=== PATIENT | female | born 1975 | race Caucasian/White ===

== ENCOUNTER 2025-04-26 11:24 | Emergency (ER) | payer OTHER, SELFPAY ==
--- OUTSIDE RECORDS SUMMARY | 2025-04-26 11:26 | XMS_ITS | Clinical Summary ---
Author Organization [employer] [facility] Address [address] [place] [id number] Care Team Providers Care Cylinder Steamer Name Role Phone Kathi Rios APRN, LUC Unavailable [phone] Kathi Rios APRN, LUC Primary Care Provider + Allergies Active Allergy Reactions Criticality Noted Date Comments Buspirone Hcl Myalgia 08/09/2014 Morphine Anaphylaxis,Cardiac Arrest High 04/12/2007 Per patient on 11/28/2020, she was told that she stopped breathing and had a rash (received for a surgery). Since then, patient says she has tolerated Percocet (oxycodone), Vicodin (hydrocodone), Dilaudid (hydromorphone) Morphine Anaphylaxis High 01/02/2023 Unlisted Allergen (Include Detail In Comments) Rash,Itching 05/24/2018 Allergy to suture material from gallbladder surgery Sutures Hives Medium 09/18/2023 Pt does not know which kind - whatever was used last time during my neck surgery Venlafaxine Other - Describe In Comment Field 06/28/2021 Increased depression Medications albuterol HFA 90 mcg/actuation inhaler Inhale 1-2 Puffs by mouth every 4 hours if needed. Active aspirin (ECOTRIN) 81 mg enteric coated tablet Take 81 mg by mouth once daily with a meal. Active MULTIVITAMIN ORAL Take 1 Tablet by mouth once daily in the evening. Active acyclovir (ZOVIRAX) 800 mg tablet Take 800 mg by mouth 3 times daily if needed (cold sores). Active cetirizine (ZYRTEC) 10 mg tablet Take 10 mg by mouth once daily in the evening. Active estradioL (ESTRACE) 0.5 mg tablet Take 0.5 mg by mouth once daily in the evening. 12/19/19 23 Active gabapentin (NEURONTIN) 300 mg capsule Take 600 mg by mouth at bedtime. 11/07/19 23 Active citalopram (CeleXA) 40 mg tablet Take 40 mg by mouth once daily in the evening. Active omeprazole (PRILOSEC) 20 mg Delayed-Release capsule Take 40 mg by mouth once daily before a meal. Active candesartan (ATACAND) 4 mg tablet Take 4 mg by mouth once daily in the evening. Active acetaminophen (TYLENOL EXTRA STRGTH) 500 mg tabletIndications: Herniation of intervertebral disc between L5 and S1 Take 2 Tablets (1,000 mg) by mouth every 6 hours. Max acetaminophen dose: 4000mg in 24 hrs. 36 Tablet 3 10:10 AM GARNETT ROOM WORKER 09/19/20 23 Active methocarbamoL (ROBAXIN) 750 mg tabletIndications: Herniation of intervertebral disc between L5 and S1 Take 1 Tablet (750 mg) by mouth four times daily. 24 Tablet 3 10:10 AM G[employer] RO[employer] WORKER 09/19/20 23 Active oxyCODONE (ROXICODONE) 5 mg immediate release tabletIndications: Herniation of intervertebral disc between L5 and S1 Take 1-2 Tablets (5-10 mg) by mouth every 4 hours if needed for Pain (For moderate to severe pain.). 26 Tablet 3 10:10 AM G[employer]NETT ROOM WORKER 09/19/20 23 Active sennosides-docusat e (SENOKOT S) (8.6-50 mg) tabletIndications: Herniation of intervertebral disc between L5 and S1 Take 1-4 Tablets by mouth two times daily. 30 Tablet 3 10:10 AM GARNETT ROOM WORKER 09/19/20 23 Active methylPREDNISolone (MEDROL DOSEPAK) 4 mg tabletIndications: Contact dermatitis, unspecified contact dermatitis type, unspecified trigger Take by mouth as instructed per packaging. 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): related to cold sores Anxiety Factor 5 Leiden mutation, heterozygous Resolved Problems Problem Noted Date Diagnosed Date Resolved Date Factor V Leiden mutation 06/25/201804/2018 Encounters Date Type Department Care Team Description 04/26/2025 Nurse Triage [facility] [address] [address] [place] [address] Pcp, No Leg Pain/problem from Last 3 Months Immunizations Immunization Administration Dates Next Due Influenza, IIV4 07/02/2018,07/15/2017,07/09/2016 ,07/31/2015,10/15/2014 MMR 06/21/1991 Td (Age >=7 Years) 10/11/2000 Tdap 05/20/2010 Family History Medical History Relation Name Comments Factor V Leiden deficiency Father Neuropathy Father Stroke Father multiple Diabetes Maternal Aunt Cancer-prostate Maternal Grandfather Diabetes Maternal Grandmother Diabetes Mother Heart Disease Mother heart valve re placement Stroke Mother age 36 and 53 Anesthesia Problem No Family History Blood Disease No Family History Cancer-breast No Family History Cancer-colon No Family History Cancer-ovarian No Family History Relation Name Status Comments Daughter Alive Father Maternal Aunt Maternal Grandfather Maternal Grandmother Mother Alive Son Alive Social History Tobacco Use Types Packs/Day Years Used Date Smoking Tobacco: Never Smokeless Tobacco: Never Tobacco Cessation:Counseling Given: No Alcohol Use Standard Drinks/Week Comments Yes 0 (1 standard drink = 0.6 oz pur e alcohol) RARE PHQ-2 Answer Date Recorded PHQ-2 Score 2 12/18/2018 Social Connections Answer Date Recorded Frequency of Communication with Friends and Fami ly Not on file 09/18/2023 Comments No Sex and Gender Information Value Date Recorded Sex Assigned at Not on file Legal Sex Female 5:23 AM G[employer]NET[employer] WORK[employer] Gender Identity Not on file Sexual Orientation Not on file Occupation Industry Job Start Date Job End Date [employer] Not on file Not on file Not on file Obstetrics History Para Term AB IAB SAB Ectopic Multiple Livin g Live Births 2 2 2 0 0 0 0 0 0 2 2 Date Outcome GA Total Labor Labor/2nd/3rd Weight Sex Type Anes PTL Tasia A1 A5 Name Clin 1995 Term M Vag Living 1997 Term F C-Sec tion Living Last Filed Vital Signs Vital Sign Reading Time Taken Comments Blood Pressure 109/74 10/22/2023 8:54 AM G[employer] RO[employer] WORKER Pulse 67 10/22/2023 8:54 AM [employer] RO[employer] WORKER Temperature 36.7 C (98.1 F) 10/22/2023 8:54 AM [employer] RO[employer] WORKER Respiratory Rate 16 10/22/2023 8:54 AM [employer] RO[employer] WORKER Oxygen Saturation 97% 10/22/2023 8:54 AM GAR[employer] RO[employer] WORKER Inhaled Oxygen Concentration - - Weight 68.9 kg (152 lb) 10/22/2023 8:54 AM [employer] RO[employer] WORKER Height 167.6 cm (5' 6) 10/22/2023 8:54 AM [employer] RO[employer] WORKER Body Mass Index 24.53 10/22/2023 8:54 AM GAR[employer] RO[employer] WORKER Plan of Treatment Health Maintenance Due Date Last Done Comments HIV for age 15-65 1990 Hepatitis C screening for ag e 18-79 1993 Hepatitis B series for 19+ ( 1 of 3 - 19+ 3-dose series) 1994 Depression screening for age 12+ 07/05/2019 07/05/2018, 07/02/2018, 07/15/2017, Additional history exists Colonoscopy through age 75 01/23/2020 Mammogram for age 45-75 01/23/2020 07/02/2018 Tetanus booster 05/20/2020 05/20/2010, 10/11/2000 Lipids for age 45-75 07/02/2023 07/02/2018, 06/13/2013, 02/16/2012, Additional history exists COVID-19 vaccine series ( season) 2024 09/05/2021, 01/06/2021 BMI (ht and wt on same day) for age 18+ 10/22/2024 10/22/2023, 12/20/2018, 07/02/2018, Additional history exists Pneumococcal series for age 50+ (1 of 1 - PCV) 2025 Zoster (shingles) series for age 50+ (1 of 2) 2025 Influenza Vaccine (#1) 2025 8, 07/15/2017, 07/09/2016, Additional history exists Medical Devices Implanted Type Area Patternmaker Plaster Device Identifier Shelf Expiration Date Model / Serial / Lot Spacer Cage Cerv [id number] Deg F3d Mimetic Metal - [id number] Implanted:Qty: 1 on 11/28/2020 by Rashad Barbosa MD at [facility] N/A: Spine [employer] 08/11/2022 [id number] / / [id number] Spacer Cage Cerv [id number] 7 Deg F3d Mimetic Metal - [id number] Implanted:Qty: 1 on 11/28/2020 by Rashad Barbosa MD at [facility] N/A: Spine [employer] 08/08/2024 [id number] / / [id number] Plate Cerv 4 Lvl 73mm Ascend Ant Titnm - [id number] Implanted:Qty: 1 on 11/28/2020 by Rashad Barbosa MD at [facility] N/A: Spine [employer] [id number] / / [id number] Screw Cerv 4.0x12 Slf Drilling Vari - [id number] Implanted:Qty: 2 on 11/28/2020 by Rashad Barbosa MD at [facility] N/A: Spine [employer] [id number] / / [id number] Screw Cerv 4.0x14 Slf Drilling Vari - [id number] Implanted:Qty: 4 on 11/28/2020 by Rashad Barbosa MD at [facility] N/A: Spine [employer] [id number] / / [id number] Screw Cerv Ant 4.5x14mm Ascend Slf Drill Fa - [id number] Implanted:Qty: 2 on 11/28/2020 by Rashad Barbosa MD at [facility] N/A: Spine [employer] [id number] / / [id number] Spacer Cage Lmbr [id number] Synmesh - [id number] Implanted:Qty: 1 on 11/28/2020 by Rashad Barbosa MD at [facility] N/A: Spine [employer] [id number] / / Endcap Lmbr 12diamm 0 Deg Synmesh - [id number] Implanted:Qty: 1 on 11/28/2020 by Rashad Barbosa MD at [facility] N/A: Spine [employer] 495.385 / / Endcap Lmbr 12diamm 2.5d [facility] - [id number] Implanted:Qty: 1 on 11/28/2020 by Rashad Barbosa MD at [facility] N/A: Spine J And J Depuy Spine [id number] / / Procedures Procedure Name Priority Date/Time Associated Diagnosis Comments XR MAMMO LOKI BILAT SCREEN Routine 07/02/2018 2:38 PM CDT Visit for screening mammogram LIPID PANEL W REFLEX MEASURED LDL Routine 07/02/2018 12:24 PM CDT Routine physical examination from Last 3 Months or Most Recently Relevant to Health Maintenance Results * XR MAMMO LOKI BILAT SCREEN (07/02/2018 2:38 PM CDT) Anatomical Region Laterality Modality BREASTS, Breast Left, Breast Right Bilateral Mammography Impressions 07/02/2018 4:09 PM CDT There is no radiographic evidence for malignancy. Recommend annual mammograms. A lay language report of this examination will be provided to the patient. MAMMOGRAM ASSESSMENT: ACR 1 Negative Narrative 07/02/2018 4:09 PM CDT XR MAMMO LOKI BILAT SCREEN [[id number]] CLINICAL HISTORY: This is an asymptomatic 43 y.o. patient. INDICATION FOR EXAM: Mammogram Screening. TECHNIQUE: CC & MLO views were obtained. This digital study was evaluated with the assistance of Computer-Aided Detection. Breast Tomosynthesis was used in interpretation. COMPARISON FILM: Yes 07/28/11 [facility] FINDINGS: Mammographically, the breast tissue is heterogeneously dense, which could obscure detection of small masses. There are no dominant masses, suspicious micro calcifications or areas of architectural distortion. us Kendra MIRANDA MAMMO Final Result * (ABNORMAL) LIPID PANEL W REFLEX MEASURED LDL (07/02/2018 12:24 PM CDT) CHOLESTEROL,TOTAL 237(H) 100 - 199 mg/dL 07/02/2018 8:31 PM CDT [facility] TRIGLYCERIDES 161(H) <150 mg/dL 07/02/2018 8:31 PM CDT [facility] HDL CHOLESTEROL 80 >40 mg/dL 8 8:31 PM CDT [facility] NON-HDL CHOLESTEROL 157(H) <145 mg/dl 07/02/2018 8:31 PM CDT [facility] CHOL/HDL RATIO 2.96 <4.50 07/02/2018 8:31 PM CDT [facility] LDL CHOLESTEROL 125 <=130 mg/dL 07/02/2018 8:31 PM CDT [facility] PROVIDER ORDERED STATUS RANDOM 07/02/2018 8:31 PM CDT [facility] Blood BLOOD SPECIMEN / Unknown Butterfly / Unknown 07/02/2018 12:24 PM CDT 07/02/2018 12:24 PM CDT Kendra MIRANDA CHEMISTRY Final Result [facility] [address] [place] [address], from Last 3 Months or Most Recently Relevant to Health Maintenance Insurance [facility] ADVANTAGE PLAN [facility] ADVANTAGE PLAN [facility] [place] ADVANTAGE * Guarantor: [facility] Contract, [facility] 2012 Account Type Relation to Patient Date of Phone Billing Address Contract Other [id number] [place] [id number] Advance Directives * Full Code (Latest Code Status on File) Date Activated Date Inactivated Comments 09/19/2023 12:28 AM 09/19/2023 2:50 PM Question Answer Comments Code Status Discussion: Reviewed Preferences * Full Code Date Activated Date Inactivated Comments 11/28/2020 2:17 PM 11/30/2020 12:24 PM Question Answer Comments Code Status Discussion: Per Existing Order * Full Code Date Activated Date Inactivated Comments 05/13/2018 10:57 AM 05/13/2018 8:55 PM Question Answer Comments Code Status Discussion: Not Discussed * Full Code Date Activated Date Inactivated Comments 08/27/2016 3:08 PM 08/28/2016 3:54 PM Care Teams Cylinder Steamer Relationship Specialty Start Date End Date Kathi Rios APRN, CNP PCP - General Nurse Practitioner 07/23/23 Kathi Rios APRN, CNP 01/02/23
[2025-04-26 11:40] VITALS: BP 118/81; PULSE 71; RESP 16; TEMP 36.2; O2SAT 96; BMI 26.1
--- NOTE | 2025-04-26 12:13 | CRLHL7_ITS ---
For Patients: As a result of the Century Cures Act, medical imaging exams and procedure reports are released immediately into your electronic medical record. You may view this report before your referring provider. If you have questions, please contact your health care provider. INDICATION: Right calf and knee pain TECHNIQUE: Ultrasound venous duplex lower right extremity. Compression venous exam was performed using minor-scale, color Doppler, and spectral Doppler imaging. COMPARISON: None. FINDINGS: Sonographic imaging demonstrates the right common femoral, deep femoral, superficial femoral, popliteal, posterior tibial and greater saphenous and the contralateral left common femoral veins to be fully compressible with normal color Doppler blood flow. IMPRESSION: Normal right lower extremity venous ultrasound, no sign of deep venous thrombosis. Dictated by Nikita Jimenez MD @ 04/26/2025 12:51:30 PM (Electronically Signed)
--- NOTE | 2025-04-26 12:15 | ED_ITS ---
HPI - General Adult General Chief complaint: Extremity Pain/Injury, Lower Stated complaint: R leg pain Time Seen by Provider: 04/26/25 11:27 History of Present Illness HPI narrative: Patient is a pleasant 50 year white female that about a week ago drove out to [place], and then flew back few days ago. She reports she has had some right knee and down to her foot numbness and discomfort. Feels little bit ?tight? in her calf area. She has not noticed any swelling, redness, or inability to walk. She has had no fevers or chills, no chest pain shortness of breath. No history of bleeding or clotting problems. She presents to ED for evaluation. She has nose no locking or catching of her knee. She has had no back symptoms although she does report she has had low back surgery and cervical surgery. She is on Neurontin and citalopram, she also takes a aspirin 81 mg daily. for postoperative symptoms after her surgeries. She has noticed no weakness in her right leg. Related Data Home Medications ?Medication ?Instructions ?Recorded ?Confirmed aspirin 81 mg capsule 81 mg PO DAILY 04/26/2507/13 citalopram 40 mg tablet 40 mg PO DAILY 04/26/2507/13 gabapentin 300 mg capsule 300 mg PO DAILY 04/26/2507/13 Previous Rx's ?Medication ?Instructions ?Recorded methylprednisolone 4 mg tablets in See Rx Instructions PO .COMPLEX 04/26/25 a dose pack (Medrol (Sudeep)) #21 ea Allergies Allergy/AdvReac Type Severity Reaction Status Date / Time morphine Allergy Unknown Verified 04/26/25 11:37 Review of Systems Status of ROS: Reports: 6 or more systems reviewed and unremarkable except as noted in History and below [employer] [facility] Social History Smoking Status: Never smoker How often do you have a drink containing alcohol: monthly or less AUDIT-C Alcohol total score: 1 Non-prescribed substance use: denies use Exam Narrative: Exam Narrative: Objective: Vital signs are within normal limits O2 sat 96% on room air Patient is alert orient x3 no distress Right knee shows full range of motion no effusion no warmth erythema Negative anterior posterior drawer No swelling notice of her knee calf or foot. She has some tightness with a Hohmann sign of her calf. No swelling of her leg noted. Const: Vital Signs, click to edit/add: Vital Signs - 24 hr 04/26/25 11:40 Temperature 97.2 F L Pulse Rate [Pulse Oximeter] 71 Respiratory Rate 16 Blood Pressure [Ri ght Upper Arm] 118/81 Pulse Oximetry 96 Oxygen Delivery Me thod Room Air Course Vital Signs Vital signs: Initial Vital Signs Temperature 97.2 F L 04/26/25 11:40 Temperature Source Temporal Artery Scan 04/26/25 11:40 Pulse Rate 71 04/26/25 11:40 Pulse Rhythm Regular 04/26/25 11:40 Respiratory Rate 16 04/26/25 11:40 Blood Pressure 118/81 04/26/25 11:40 Blood Pressure Mean 93 04/26/25 11:40 Blood Pressure Position Sitting 04/26/25 11:40 Pulse Oximetry 96 04/26/25 11:40 Oxygen Delivery Method Room Air 04/26/25 11:40 Vital Signs Temperature 97.2 F L 04/26/25 11:40 Pulse Rate 71 04/26/25 11:40 Respiratory Rate 16 04/26/25 11:40 Blood Pressure 118/81 04/26/25 11:40 Pulse Oximetry 96 04/26/25 11:40 Oxygen Delivery Method Room Air 04/26/25 11:40 Temperature 97.2 F L 04/26/25 11:40 Pulse Rate 71 04/26/25 11:40 Respiratory Rate 16 04/26/25 11:40 Blood Pressure 118/81 04/26/25 11:40 Pulse Oximetry 96 04/26/25 11:40 Oxygen Delivery Method Room Air 04/26/25 11:40 Medical Decision Making MDM Narrative Medical decision making narrative: [age] year white female with a history of recent travel with some right knee and leg pain. Likely musculoskeletal but I think we need to rule out DVT. Will get an ultrasound. If this is negative certainly perhaps some Medrol Dosepak might be helpful as well as ice to the calf area. Will see how the ultrasound shows. It is not clear radicular pain. Addendum 12:40 p.m.: The patient has a negative Doppler scan for DVT. I think she might either have a mild radicular pain, but more likely just simply soft tissue inflammation in her leg from her travel. She will continue her baby aspirin daily, would use a Medrol Dosepak that all prescribed. Maintain activity and walking. Follow up with primary care in the next 3-4 days not completely resolved for further assessment. Return to ED as needed. Discharge Plan Discharge Clinical Impression: Leg pain, right Patient Disposition: Home w/ Parent or Adult Condition: Stable Additional Instructions: Regular walking, continue her aspirin other home medicines, Medrol Dosepak prescribed. Follow-up with primary care doctor in 3-4 days if not completely resolved. Return to the ED sooner as needed. Activity Level: No Restrictions Discharge Diet: Regular Prescriptions: New methylprednisolone [Medrol (Sudeep)] 4 mg tablets,dose pack See Rx Instructions .ROUTE .COMPLEX Qty: 21 0RF Rx Instructions: orally per package directions No Action citalopram 40 mg tablet 40 mg PO DAILY gabapentin 300 mg capsule 300 mg PO DAILY aspirin 81 mg capsule 81 mg PO DAILY Stand Alone Forms: [employer] Info Instructions
--- OUTSIDE RECORDS SUMMARY | 2025-04-26 12:45 | XMS_ITS | Clinical Summary ---
Author Organization [facility] now [employer] Address [address] [place] [address] Care Team Providers Care Radiology Manager Name Role Phone Magdalenealbina Judi Acosta Primary Care Provider [phone] Source Comments You are receiving this document as you are listed as the primary care provider,follow-up provider, or the patient has been referred to you for consultation.This is in compliance with the Medicare andMedicaid EHR Incentive Program,which states Providers who transition their patient to another setting of careor provider of care or refers their patient to another provider of care shouldprovide summary care record for each transition of care or referral. [employer] Allergies Active Allergy Reactions Criticality Noted Date Comments Buspirone Myalgias 08/09/2014 Other reaction(s): Myalgia Morphine Anaphylaxis High 06/01/2019 Morphine Cardiovascular arrest,Anaphylaxis,Hives,R tank High 04/01/2005 Other reaction(s): Cardiac Arrest Per patient on 11/28/2020, she was told that she stopped breathing and had a rash (received for a surgery). Since then, patient says she has tolerated Percocet (oxycodone), Vicodin (hydrocodone), Dilaudid (hydromorphone) Other Hives High 09/18/2023 Sutures x3 whatever was used last time during my neck surgery Venlafaxine Other, see comments 06/28/2021 Increased depression Medications * This document contains information received from the source organization and may not represent a complete record from that organization. Multiple Vitamin (MULTIVITAMINS OR) daily. Active aspirin EC 81 MG enteric coated tablet Take 1 Tablet (81 mg) by mouth daily. 3 11/16/2020 Active acyclovir (ZOVIRAX) 800 MG tablet Take 1 Tablet (800 mg) by mouth as needed. 90 Tablet 3 08/10/2023 Active ALBUterol sulfate HFA 108 (90 Base) MCG/ACT inhaler Inhale 1-2 Puffs every 4 hours as needed for Wheezing. 1 Each 5 04/26/2024 Active citalopram (CELEXA) 40 MG tabletIndicatio ns:Anxiety (HRC) Take 1 Tablet (40 mg) by mouth daily. 90 Tablet 3 06/08/2024 06/08/20 Active gabapentin (NEURONTIN) 300 MG capsuleIndicati ons:Headache Take 1 Capsule (300 mg) by mouth daily at bedtime. Indications: Headache 90 Capsule 3 08/10/2024 Active candesartan (ATACAND) 4 MG tablet Take 1 Tablet (4 mg) by mouth daily. 90 Tablet 2 09/27/2024 09/27/20 25 Active Active Problems Problem Noted Date Diagnosed Date History of total hysterectom y with bilateral salpingo-oophorectomy (BSO) 02/25/2024 HNP (herniated nucleus pulposus), lumbar 023 Asthma, exercise induced 10/16/2020 Cervical spine pain 06/21/2020 Premature surgical menopause 03/27/2020 Overview (03/27/2020): Hysterectomy and BSO at age 25 for endometriosis. Recurrent cold sores 11/07/2019 Anxiety 11/07/2019 Hot flashes 06/01/2019 Factor 5 Leiden mutation, heterozygous 9 Family history of stroke 06/01/2019 Migraine without aura, intra ctable, without status migrainosus Resolved Problems Problem Noted Date Diagnosed Date Resolved Date Status post hysterectomy 02/25/202406/2024 Attention or concentration deficit 03/26/2023 02/22/2024 Chronic cluster headache, not intractable 06/21/2020 02/22/2024 Paresthesias 12/28/2019 02/22/2024 Chronic intractable headache 12/28/2019 02/22/2024 Syncope 12/08/2019 02/22/2024 Decreased libido 06/01/2019 02/22/2024 Blood in stool 06/01/2019 11/07/2019 Diarrhea 06/01/2019 11/07/2019 Migraine 06/01/2019 11/07/2019 Status post total hysterecto my and bilateral salpingo-oophorectomy 06/01/2019 11/07/2019 History of endometriosis 06/01/2019 Immunizations Immunization Administration Dates Next Due HepB Adult (Heplisav-B, 19+ yrs, 2 dose series) 08/04/2022 Influenza (Flucelvax), Prese rv Free QIV 08/10/2023 Influenza IIV4 (Quadrivalent ) 0.5mL ([id number]) 08/04/2022,06/28/2021,08/17/2019,2017,07/15/2017,07/09/2016,07/31/2015,1 12/16/2013 Influenza LAIV (Nasal, 2-49 yrs) 11/16/2020 Influenza ccIIV3 6 months+ (Flucelvax) 08/10/2024 Lionel COVID-19 Vaccine 09/05/2021,01/06/2021 MMR 06/21/1991 PCV20 ([id number]) 08/04/2022 PPSV23 (Pneumovax) 06/28/2021 Td 10/11/2000 Tdap 11/16/2020,05/20/2010 Family History Medical History Relation Name Comments Factor 5 Leiden Father Mother Heart Disease Father Mother Stroke Father Mother 3 strokes total Heart Disease Mother Father valve replacem ent Stroke Mother Father massive stroke age 50, and again age 64 Migraines Daughter Cancer, Breast Paternal Aunt Multiple Sclerosis Sister 1 half Brain Aneurysm Negative Family History Cancer, Ovary Negative Family History Relation Name Status Comments Father Mother Alive Mother Father Alive Brother 1 half Alive Brother 2 half Alive Daughter Alive Maternal Grandfather Maternal Grandmother Alive Paternal Aunt Paternal Grandfather Paternal Grandmother Sister 1 half Alive Sister 2 half Alive Son Alive Social History Tobacco Use Types Packs/Day Years Used Date Smoking Tobacco: Never Passive Smoke Exposure: Never Smokeless Tobacco: Never Tobacco Cessation:Counseling Given: Not Answered Alcohol Use Standard Drinks/Week Comments Yes 0 (1 standard drink = 0.6 oz pur e alcohol) Glass of wine once a month. PHQ-2 Answer Date Recorded PHQ-2 Score 2 04/26/2024 Financial Resource Strain Answer Date R ecorded Is it hard for you to pay fo r the very basics like food, housing, medical care or heating? No 08/10/2023 Food Insecurity Answer Date Recorded Does your food run out before you have the money to buy more? No 08/10/2023 Transportation Needs Answer Date Record ed Does a lack of transportatio n keep you from your medical appointments or from getting your medications? 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 Respiratory Rate 16 08/12/2024 12:44 PM CDT Oxygen Saturation 98% 07/31/2023 11:40 AM CDT Inhaled Oxygen Concentration - - Weight 71.7 kg (158 lb) 08/10/2024 3:12 PM CDT Height 166.4 cm (5' 5.5) 08/10/2024 3:12 PM CDT Body Mass Index 25.89 08/10/2024 3:12 PM CDT Plan of Treatment Health Maintenance Due Date Last Done Comments HepB Vaccine (2) 09/01/2022 08/04/2022 COVID-19 Vaccine ( season) 2024 09/05/2021, 01/06/2021 Zoster/Shingles Vaccine (1 of 2) 2025 Influenza Vaccine (#1) 2025 4, 08/10/2023, 08/04/2022, Additional history exists Adult Preventive Visit 08/10/2025 4, 08/10/2023, 08/04/2022, Additional history exists Mammogram 08/11/2025 08/11/2024, 07/20, 09/11/2021, Additional history exists Asthma ACT (score of 20 or higher) 11/10/2025 11/10/2024, 01/07/2024, 03/04/2023, Additional history exists Diabetes Screening- (based on age and BMI) 07/27/2026 07/27/2023, 06/28/2021, 11/16/2020 Cholesterol 07/27/2028 07/27/2023, 06/19, 11/16/2020 DTaP/Tdap/Td Vaccine (3 - Tdap) 11/16/2030 11/16/2020, 05/20/2010, 10/11/2000 Colonoscopy 07/31/2033 07/31/2023, 07/07/2019 HIV Screening (Preventive Services) Completed 06/28/2021 (Completed) Pneumococcal Vaccine 50+ Yrs Completed 08/04/2022, 06/28/2021 Hep C Screening (Preventive Services) Completed 07/22/2023 HepA Vaccine Aged Out No longer eligi ble based on patient's age to complete this topic Hib Vaccine Aged Out No longer eligi ble based on patient's age to complete this topic IPV (Polio) Vaccine Aged Out No longe r eligible based on patient's age to complete this topic MCV4 Vaccine Aged Out No longer eligi ble based on patient's age to complete this topic Meningococcal B Vaccine Aged Out No l onger eligible based on patient's age to complete this topic Procedures Procedure Name Priority Date/Time Associated Diagnosis Comments MM MAMMOGRAM SCREENING BILAT W 3D THIERRY W CAD Routine 08/11/2024 7:38 AM CDT ENDOSCOPY, COLON, SCREENING/DIAGNOSTI C Routine 07/31/2023 10:58 AM CDT Abdominal pain, unspecified abdominal location HGB A1C Routine 07/27/2023 10:42 AM CDT Screening for diabetes mellitus LIPID PANEL & DIRECT LDL (IF NEEDED) Routine 07/27/2023 10:42 AM CDT Screening cholesterol level HEPATITIS C ANTIBODY, WITH REFLEX (ANTI-HCV) Routine 07/22/2023 12:10 PM CDT Need for hepatitis C screening test from Last 3 Months or Most Recently Relevant to Health Maintenance Results * MM Mammogram Screening Bilat W 3D Thierry W CAD (08/11/2024 7:38 AM CDT) Anatomical Region Laterality Modality Breast Bilateral Mammography Impressions 08/11/2024 9:05 AM CDT : ACR BI-RADS Category 1: Negative RECOMMENDATION: Follow Up Imaging in 12 months - Bilateral The results and recommendations of this examination will be communicated to the patient. Narrative 08/11/2024 9:05 AM CDT MM MAMMOGRAM SCREENING BILAT W 3D THIERRY W CAD performed on 08/11/24 [facility] Accredited Facility: [place] [address] Compared to: 08/10/2023 MM Mammogram Screening Bilat W 3D Thierry W CAD, 09/11/2021 MM Mammogram Screening Bilat W 3D Thierry W CAD, and 07/02/2018 Foreign Image(S) Mammogram FINDINGS: Bilateral screening mammogram was performed with the assistance of Computer-Aided Detection and breast tomosynthesis. The breasts are heterogeneously dense, which may obscure small masses. There is no radiographic evidence of malignancy. us Judi Thorne DO RAD DM Final Res ult * Endoscopy, Colon, Screening/Diagnostic (07/31/2023 10:58 AM CDT) Anatomical Region Laterality Modality Other 07/31/2023 10:5 8 AM CDT Narrative 07/31/2023 10:58 AM CDT Patient Name: Amrita Vasquez Procedure Date: 07/31/2023 10:58 AM Date of : 1975 Admit Type: Outpatient Age: 48 Gender: Female Note Status: Finalized Attending MD: Henry Valentine , , Procedure: Colonoscopy Indications: Abdominal pain in the right lower quadrant, Abnormal CT of the GI tract Providers: [place] MD: Kathi Cohen Medicines: Propofol per Anesthesia Complications: No immediate complications. Procedure: Pre-Anesthesia Assessment: - Prior to the procedure, a History and Physical was performed, and patient medications and allergies were reviewed. The patient's tolerance of previous anesthesia was also reviewed. The risks and benefits of the procedure and the sedation options and risks were discussed with the patient. All questions were answered, and informed consent was obtained. Prior Anticoagulants: The patient has taken no anticoagulant or antiplatelet agents. ASA Grade Assessment: II - A patient with mild systemic disease. After reviewing the risks and benefits, the patient was deemed in satisfactory condition to undergo the procedure. After I obtained informed consent, the scope was passed under direct vision. Throughout the procedure, the patient's blood pressure, pulse, and oxygen saturations were monitored continuously. The [id number] was introduced through the anus and advanced to the cecum, identified by appendiceal orifice and ileocecal valve. The colonoscopy was performed without difficulty. The patient tolerated the procedure well. The quality of the bowel preparation was adequate to identify polyps. The terminal ileum, ileocecal valve, appendiceal orifice, and rectum were photographed. Findings: The entire examined colon appeared normal on direct and retroflexion views. The terminal ileum appeared normal. Impression: - The entire examined colon is normal on direct and retroflexion views. - The examined portion of the ileum was normal. - No specimens collected. Recommendation: - Discharge patient to home. - Resume previous diet. - Continue present medications. - Repeat colonoscopy in 10 years for screening purposes. Procedure Code(s): --- Professional --- 99250, Colonoscopy, flexible; diagnostic, including collection of specimen(s) by brushing or washing, when performed (separate procedure) Diagnosis Code(s): --- Professional --- R10.31, Right lower quadrant pain R93.3, Abnormal findings on diagnostic imaging of other parts of digestive tract CPT copyright 2021 [employer] [employer]. All rights reserved. The codes documented in this report are preliminary and upon wheat shipper review may be revised to meet current compliance requirements. Henry Valentine, 07/31/2023 11:28:37 AM Number of Addenda: 0 Note Initiated On: 07/31/2023 10:58 AM Endoscopy Report Procedure Note Henry Valentine MD - 07/31/2023 Patient Name: Amrita Vasquez Procedure Date: 07/31/2023 10:58 AM Date of : 1975 Admit Type: Outpatient Age: 48 Gender: Female Note Status: Finalized Attending MD: Henry Valentine , , Procedure: Colonoscopy Indications: Abdominal pain in the right lower quadrant, Abnormal CT of the GI tract Providers: [place]at River Referring MD: Kathi Cohen Medicines: Propofol per Anesthesia Complications: No immediate complications. Procedure: Pre-Anesthesia Assessment: - Prior to the procedure, a History and Physical was performed, and patient medications and allergies were reviewed. The patient's tolerance of previous anesthesia was also reviewed. The risks and benefits of the procedure and the sedation options and risks were discussed with the patient. All questions were answered, and informed consent was obtained. Prior Anticoagulants: The patient has taken no anticoagulant or antiplatelet agents. ASA Grade Assessment: II - A patient with mild systemic disease. After reviewing the risks and benefits, the patient was deemed in satisfactory condition to undergo the procedure. After I obtained informed consent, the scope was passed under direct vision. Throughout the procedure, the patient's blood pressure, pulse, and oxygen saturations were monitored continuously. The [id number] was introduced through the anus and advanced to the cecum, identified by appendiceal orifice and ileocecal valve. The colonoscopy was performed without difficulty. The patient tolerated the procedure well. The quality of the bowel preparation was adequate to identify polyps. The terminal ileum, ileocecal valve, appendiceal orifice, and rectum were photographed. Findings: The entire examined colon appeared normal on direct and retroflexion views. The terminal ileum appeared normal. Impression: - The entire examined colon is normal on direct and retroflexion views. - The examined portion of the ileum was normal. - No specimens collected. Recommendation: - Discharge patient to home. - Resume previous diet. - Continue present medications. - Repeat colonoscopy in 10 years for screening purposes. Procedure Code(s): --- Professional --- 88831, Colonoscopy, flexible; diagnostic, including collection of specimen(s) by brushing or washing, when performed (separate procedure) Diagnosis Code(s): --- Professional --- R10.31, Right lower quadrant pain R93.3, Abnormal findings on diagnostic imaging of other parts of digestive tract CPT copyright 2021 [employer]. All rights reserved. The codes documented in this report are preliminary and upon wheat shipper review may be revised to meet current compliance requirements. Henry Mckinneyen, 07/31/2023 11:28:37 AM Number of Addenda: 0 Note Initiated On: 07/31/2023 10:58 AM Endoscopy Report Kathi Rios APRN, LUC ET GI PROCEDURE ORDERABL ES Final Result * (ABNORMAL) Lipid Panel and Direct LDL(If Needed) (07/27/2023 10:42 AM CDT) [facility] Signature Cholesterol 219(H) 0 - 199 mg/dL 07/27/2023 5:00 PM [facility] Triglyceride 82 <=149 mg/dL 07/27/2023 5:00 PM [facility] HDL Cholesterol 69 >=40 mg/dL 3 5:00 PM [facility] LDL, Calculated 134(H) <130 mg/dL 3 5:00 PM [facility] Non HDL Chol, Calculated 150 <=159 mg/dL 07/27/2023 5:00 PM [facility] Cholesterol/HDL Ratio 3.2 07/27/2023 5:00 PM [facility] Hours Fasting 0.1 8 - 12 Hours 07/27/2023 5:00 PM [facility] Blood Venipuncture / Unknown 07/27/2023 10:42 AM CDT 07/27/2023 10:42 AM CDT Kathi Rios APRN, CNP LAB_1 Final Re sult [facility] [address] [place] [address], [facility] [phone] * Hgb A1C (Expected: Now) - Collect in Lab (07/27/2023 10:42 AM CDT) [facility] Hemoglobin A1C 5.3 <=5.6 % 07/27/2023 5:09 PM CDT [facility] Estimated Average Glucose (Calc) 105 < 117 mg/dL 07/27/2023 5:09 PM CDT [facility] Comment:Estimated average gl ucose (eAG) converts A1c into glucose units (mg/dL) and estimates average glucose over the past approximately 3 months. The eAG reference interval (<117 mg/dL) corresponds to an A1c of <5.7%. Blood Venipuncture / Unknown 07/27/2023 10:42 AM CDT 07/27/2023 10:42 AM CDT Kathi Rios APRN, CNP LAB_1 Final Re sult [facility] [id number] [place] [address] * Hepatitis C Antibody, with Reflex (07/22/2023 12:10 PM CDT) [facility] Hepatitis C Antibody Negative (Non Reactive) Negative (Non Reactive) 07/22/2023 6:47 PM CDT [facility] Comment:Antibodies to HCV no t detected. Does not exclude the possiblity of exposure to HCV. Blood Venipuncture / Unknown 07/22/2023 12:10 PM CDT 07/22/2023 12:10 PM CDT Jarret Connell MD LAB_1 Final Result [facility] [address] [place] [address], [facility] from Last 3 Months or Most Recently Relevant to Health Maintenance Insurance S[employer] Care Teams Radiology Manager Relationship Specialty Start Date End Date Judi Thorne DO [address] [facility] [place] [address] PCP - General Family Practice 07/05/24
== END 2025-04-26 13:20 | disposition home or self-care (01) ==
LOC: ED 12:43
PROVIDERS: Emergency Provider Family Medicine
DX: M79.661 Pain in right lower leg (principal)
CPT/HCPCS: 93971; 99283; 99284

== ENCOUNTER 2025-08-17 15:36 | Emergency (ER) | payer OTHER, SELFPAY ==
--- OUTSIDE RECORDS SUMMARY | 2025-07-17 07:50 | XMS_ITS | Encounter Summary ---
Author Organization [facility] Address [address] [place] [address] Care Team Providers Care Cotton Farmworker Name Role Phone Judi Thorne DO Primary Care Provider [phone] Reason for Visit * Reason Comments QUESTIONS, GENERAL Entered automaticall y based on patient selection in [employer]. Encounter Details Date Type Department Care Team (Late st Contact Info) Description 07/17/2025 7:50 AM CDT E-Visit [facility] [address] [place] [address] Judi Thorne DO [address] [place] [phone] Dx: Burning with urination (Primary Dx) Social History Tobacco Use Types Packs/Day Years Used Date Smoking Tobacco: Never Passive Smoke Exposure: Never Smokeless Tobacco: Never Alcohol Use Standard Drinks/Week Comments Yes 0 [...] file Not on file Not on file documented as of this encounter Plan of Treatment Not on file documented as of this encounter Visit Diagnoses Diagnosis Burning with urination- Primary Dysuria documented in this encounter Care Teams Cotton Farmworker Relationship Specialty Start Date End Date Judi Thorne DO [address] [facility] [place] [address] PCP - General Family Practice 07/05/24 documented as of this encounter
[2025-08-17] VITALS (11 sets, daily range): BP systolic 124–125; BP diastolic 68–81; PULSE 70; RESP 14–22; TEMP 36.6; O2SAT 98; BMI 26.1
--- OUTSIDE RECORDS SUMMARY | 2025-08-17 15:42 | XMS_ITS | Clinical Summary ---
Author Organization [facility] Address [address] [place] [address] Care Team Providers Care Wool Shearing Supervisor Name Role Phone [facility], [facility] Pro vider Allergies Active Allergy Reactions Criticality Noted Date Comments Buspirone Muscle Pain (Myalgia) 08/09/2014 Morphine Anaphylaxis,Hives,Ra sh High 04/01/2005 Other reaction(s): Cardiac Arrest Per patient on 11/28/2020, she was told that she stopped breathing and had a rash (received for a surgery). 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 Gender Identity Not on file Sexual Orientation Not on file Last Filed Vital Signs Vital Sign Reading Time Taken Comments Blood Pressure 123/78 05/09/2024 7:59 PM CDT Pulse 66 05/09/2024 7:59 PM CDT Temperature 36.6 C (97.8 F) 05/09/2024 5:15 PM CDT Respiratory Rate 16 05/09/2024 5:15 PM CDT Oxygen Saturation 96% 05/09/2024 7:43 PM CDT Inhaled Oxygen Concentration - - Weight 77.1 kg (170 lb) 04/03/2021 12:09 PM CDT Height 167.6 cm (5' 6) 04/03/2021 12:09 PM CDT Body Mass Index 27.44 04/03/2021 12:09 PM CDT Plan of Treatment Health Maintenance Due Date Last Done Comments ADVANCE CARE PLANNING 1975 ANNUAL REVIEW OF HM ORDERS 1975 CT COLONOGRAPHY 1975 FIT 1975 FLEX SIG 1975 sDNA (Cologuard) 1975 COLONOSCOPY 1985 COLORECTAL CANCER SCREENING 1985 HIV SCREENING 1990 PAP 01/23/1996 LIPID 2015 HEPATITIS B VACCINE (2 of 2 - CpG 2-dose series) 09/01/2022 08/04/2022 YEARLY PREVENTIVE VISIT 08/10/2024 08/10/20, 08/04/2022, 06/28/2021 PHQ-2 (once per calendar year) 2024 ZOSTER VACCINE (1 of 2) 2025 COVID-19 VACCINE (3 - season) 2025 09/05/2021, 01/06/2021 INFLUENZA VACCINE (#1) 2025 , 08/04/2022, 06/28/2021, Additional history exists MAMMO SCREENING 08/10/2025 08/10/2023, 07/20, 09/11/2021, Additional history exists DIABETES SCREENING 05/09/2027 05/09/2024 DTAP/TDAP/TD VACCINE (3 - Td or Tdap) 11/16/2030 11/16/2020, 05/20/2010, 10/11/2000 PNEUMOCOCCAL VACCINE 50+ YEARS Completed 08/04/2022, 06/28/2021 HEPATITIS C SCREENING Completed 07/22/2023 HPV VACCINE (No Doses Required) Completed MENINGITIS VACCINE Aged Out No longer eligible based on patient's age to complete this topic Procedures Procedure Name Priority Date/Time Associated Diagnosis Comments BASIC METABOLIC PANEL STAT 05/09/2024 2:44 PM CDT from Last 3 Months or Most Recently Relevant to Health Maintenance Results * (ABNORMAL) Basic metabolic panel (05/09/2024 2:44 PM CDT) Sodium 140 135 - 145 mmol/L 05/09/2024 3:08 PM CDT LABORATORY Potassium 3.9 3.4 - 5.3 mmol/L 05/09/2024 3:08 PM CDT LABORATORY Chloride 106 98 - 107 mmol/L 05/09/2024 3:08 PM CDT [facility] Carbon Dioxide (CO2) 20(L) 22 - 29 mmol/L 05/09/2024 3:08 PM CDT [facility] Anion Gap 14 7 - 15 mmol/L 05/09/2024 3:08 PM CDT [facility] Urea Nitrogen 9.9 6.0 - 20.0 mg/dL 05/09/2024 3:08 PM CDT LABORATORY Creatinine 0.71 0.51 - 0.95 mg/dL 05/09/2024 3:08 PM CDT LABORATORY GFR Estimate >90 >60 mL/min/1.7 3m2 05/09/2024 3:08 PM CDT [facility] Comment:eGFR calculated us2020 CKD-EPI equation. Calcium 8.7(L) 8.8 - 10.4 mg/dL 05/09/2024 3:08 PM CDT [facility] Comment:Reference intervals for this test were updated on 05/03/2024 to reflect our healthy population more accurately. There may be differences in the flagging of prior results with similar values performed with this method. Those prior results can be interpreted in the context of the updated reference intervals. Glucose 91 70 - 99 mg/dL 05/09/2024 3:08 PM CDT LABORATORY Blood BLOOD SPECIMEN / Unknown Venipuncture / Unknown 05/09/2024 2:44 PM CDT 05/09/2024 2:49 PM CDT us Poncho Ortiz MD LAB - BLOOD ORDERABLES Final Res ult LABORATORY [facility] [address] Lab (1st floor, no room number) [place] [address], [facility] from Last 3 Months or Most Recently Relevant to Health Maintenance Insurance [employer] Care Teams Wool Shearing Supervisor Relationship Specialty Start Date End Date [facility] [address] [place] [address] PCP - General 05/09/24
--- OUTSIDE RECORDS SUMMARY | 2025-08-17 15:42 | XMS_ITS | Clinical Summary ---
Author Organization [facility] Address [address] [place] [address] Care Team Providers Care Leader Assembler Name Role Phone None, Md Primary Care Provider Unavailabl e Allergies Active Allergy Reactions Criticality Noted Date Comments Buspirone Hcl 08/09/2014 Other reaction(s): Myalgia Morphine 04/12/2007 Other reaction(s): Hives Medications citalopram (CELEXA) 20 mg oral tablet TAKE ONE AND ONE-HALF TABLETS BY MOUTH EVERY DAY 02/22/2018 Active estrogens, conjugated (PREMARIN) 0.625 mg oral tablet TAKE ONE TABLET BY MOUTH EVERY DAY 09/21/2017 Active zolpidem (AMBIEN) 5 mg oral tablet TAKE ONE TABLET BY MOUTH AT BEDTIME NEEDED 03/15/2018 Active Social History Tobacco Use Types Packs/Day Years Used Date Smoking Tobacco: Never Smokeless Tobacco: Never Comments Unknown Sex and Gender Information Value Date Recorded Sex Assigned at Not on file Legal Sex Female 8:05 AM CDT Gender Identity Not on file Sexual Orientation Not on file Last Filed Vital Signs Vital Sign Reading Time Taken Comments Blood Pressure 114/74 04/08/2018 8:29 AM CDT Pulse 59 04/08/2018 8:29 AM CDT Temperature 36.2 C (97.2 F) 04/08/2018 8:29 AM CDT Respiratory Rate 15 04/08/2018 8:29 AM CDT Oxygen Saturation 98% 04/08/2018 8:29 AM CDT Inhaled Oxygen Concentration - - Weight 74.1 kg (163 lb 6.4 oz) 04/08/2018 8:29 A M CDT Height 170.2 cm (5' 7) 04/08/2018 8:29 AM CDT Body Mass Index 25.59 04/08/2018 8:29 AM CDT Plan of Treatment Health Maintenance Due Date Last Done Comments Colonoscopy 1975 Hepatitis C Screening 1975 Lipid Screening 1975 Mammogram Screening 1975 Pap Smear 1975 Anxiety Screening (VASHTI-2) 01/23/1976 Depression Assessment (PHQ-2) 01/23/1976 Pneumococcal 50+ Years (1 of 2 - PCV) 1994 Adult Tetanus Booster 05/20/2020 05/20/2010 Yearly Review of HCD 2025 04/08/2018 Zoster Vaccine (1 of 2) 2025 COVID-19 Vaccine ( - season) 2025 Influenza Vaccine (#1) 2025 7, 07/09/2016, 07/31/2015, Additional history exists RSV Vaccines (1 - 1-dose 75+ series) 2050 Meningococcal B Vaccine Aged Out No l onger eligible based on patient's age to complete this topic Insurance [address] [employer]ERCIAL Care Teams Leader Assembler Relationship Specialty Start Date End Date None, PCP - General 04/08/18
--- OUTSIDE RECORDS SUMMARY | 2025-08-17 15:42 | XMS_ITS | Clinical Summary ---
Author Organization [facility] Address [address] [place] [address] Care Team Providers Care Dial Mounter Name Role Phone Magdalenealbina Judi Acosta Primary Care Provider [phone] Source Comments You are receiving this document [...] for each transition of care or referral. Vive Unique Allergies Active Allergy Reactions Criticality Noted Date [...] Other, see comments 06/28/2021 Increased depression Medications Multiple Vitamin (MULTIVITAMINS OR) daily. Active aspirin [...] by mouth daily. 90 Tablet 3 06/08/2024 Active gabapentin (NEURONTIN) 300 MG capsuleIndicati ons:Headache [...] salpingo-oophorectomy 06/01/2019 11/07/2019 History of endometriosis 06/01/2019 Encounters Date Type Department Care Team Description 07/17/2025 7:50 AM CDT E-Visit [facility] [address] [place] [address] Judi Thorne, DO Dx: Burning with urination (Primary Dx) from Last 3 Months Immunizations Immunization Administration Dates Next Due HepB Adult (Heplisav-B, 19+ yrs, 2 dose series) 08/04/2022 Influenza (Flucelvax), Prese rv Free QIV 08/10/2023 Influenza IIV4 (Quadrivalent ) 0.5mL (30590) 08/04/2022,06/28/2021,08/17/2019,2017,07/15/2017,07/09/2016,07/31/2015,1 12/16/2013 Influenza LAIV (Nasal, 2-49 yrs) 11/16/2020 Influenza ccIIV3 6 months+ (Flucelvax) 08/10/2024 Lionel COVID-19 Vaccine 09/05/2021,01/06/2021 MMR 06/21/1991 PCV20 ([id number]) 08/04/2022 PPSV23 (Pneumovax) 06/28/2021 Td 10/11/2000 Tdap [...] 36.5 C (97.7 F) 09/18/2023 10:30 AM CLOTH BEAMER Respiratory Rate 16 08/12/2024 12:44 PM CDT Oxygen Saturation 98% 07/31/2023 11:40 AM CDT Inhaled Oxygen Concentration - - Weight 71.7 kg (158 lb) 08/10/2024 3:12 PM CDT Height 166.4 cm (5' 5.5) 08/10/2024 3:12 PM CDT Body Mass Index 25.89 08/10/2024 3:12 PM CDT Plan of Treatment Health Maintenance Due Date Last Done Comments HepB Vaccine (2) 09/01/2022 08/04/2022 RSV Vaccine (1 - Risk 50-74 years 1-dose series) 2025 Zoster/Shingles Vaccine (1 of 2) 2025 COVID-19 Vaccine (3 - season) 2025 09/05/2021, 01/06/2021 Influenza Vaccine (#1) 2025 , 08/10/2023, 08/04/2022, Additional history exists Adult Preventive Visit 08/10/2025 , 08/10/2023, 08/04/2022, Additional history exists Mammogram 08/11/2025 08/11/2024, 07/20, 09/11/2021, Additional history exists Asthma ACT (score of 20 or higher) 11/10/2025 11/10/2024, 01/07/2024, 03/04/2023, Additional history exists Cholesterol 07/27/2028 07/27/2023, 06/19, 11/16/2020 DTaP/Tdap/Td Vaccine [...] AM CDT Abdominal pain, unspecified abdominal location LIPID PANEL & DIRECT LDL (IF NEEDED) [...] 3D THIERRY W CAD performed on 08/11/24 FDA Accredited Facility: [place] [address] Compared to: 08/10/2023 MM Mammogram Screening Bilat [...] and oxygen saturations were monitored continuously. The [id number] was introduced through the anus and advanced [...] screening purposes. Procedure Code(s): --- Professional --- 65676, Colonoscopy, flexible; diagnostic, including collection of specimen(s) by brushing or washing, when performed (separate procedure) Diagnosis Code(s): --- Professional --- R10.31, Right lower quadrant pain R93.3, Abnormal findings on diagnostic imaging of other parts of digestive tract CPT copyright 2021 [employer]. All rights reserved. The codes documented in this report are preliminary and upon surface mount technology operator review may be revised to meet current [...] and oxygen saturations were monitored continuously. The [id number] was introduced through the anus and advanced [...] screening purposes. Procedure Code(s): --- Professional --- 70375, Colonoscopy, flexible; diagnostic, including collection of specimen(s) by brushing or washing, when performed (separate procedure) Diagnosis Code(s): --- Professional --- R10.31, Right lower quadrant pain R93.3, Abnormal findings on diagnostic imaging of other parts of digestive tract CPT copyright 2021 [employer]. All rights reserved. The codes documented in this report are preliminary and upon surface mount technology operator review may be revised to meet current compliance requirements. Henry Mckinneyen, 07/31/2023 11:28:37 AM Number of Addenda: 0 Note Initiated On: 07/31/2023 10:58 AM Endoscopy Report Kathi Rios APRN, CNP ET GI PROCEDURE ORDERABL ES Final Result * (ABNORMAL) Lipid Panel and Direct LDL(If Needed) (07/27/2023 10:42 AM CDT) Pathologist [facility] Cholesterol 219(H) 0 - 199 mg/dL 07/27/2023 5:00 PM T [facility] Triglyceride 82 <=149 mg/dL 07/27/2023 5:00 PM T [facility] HDL Cholesterol 69 >=40 mg/dL 3 5:00 PM [facility] LDL, Calculated 134(H) <130 mg/dL 3 5:00 PM [facility] Non HDL Chol, Calculated 150 <=159 mg/dL 07/27/2023 5:00 PM [facility] Cholesterol/HDL Ratio 3.2 07/27/2023 5:00 PM [facility] Hours Fasting 0.1 8 - 12 Hours 07/27/2023 5:00 PM [facility] Blood Venipuncture / Unknown 07/27/2023 10:42 AM CDT 07/27/2023 10:42 AM CDT Kathi Rios APRN, CNP LAB_1 Final Re sult [facility] [address] [place] [address], [facility] [phone] * Hepatitis C Antibody, with Reflex (07/22/2023 12:10 PM CDT) [facility] Hepatitis C Antibody Negative (Non Reactive) Negative (Non Reactive) 07/22/2023 6:47 PM CDT [facility] Comment:Antibodies to HCV no t detected. Does not exclude the possiblity of exposure to HCV. Blood Venipuncture / Unknown 07/22/2023 12:10 PM CDT 07/22/2023 12:10 PM CDT Jarret Connell MD LAB_1 Final Result [facility] [address] [place] [address], [facility] from Last 3 Months or Most Recently Relevant to Health Maintenance Insurance SELF MANAGED CARE SELF MANAGED CARE SELF MANAGED CARE Care Teams Dial Mounter Relationship Specialty Start Date End Date Judi Thorne DO [address] [facility] [place] [address] PCP - General Family Practice 07/05/24
--- OUTSIDE RECORDS SUMMARY | 2025-08-17 15:43 | XMS_ITS | Clinical Summary ---
Author Organization [facility] Address [address] [place] [address] Care Team Providers Care Residential Monitor Name Role Phone Kathi Rios APRN, DIFFUSION OPERATOR Unavailable [phone] Radha Cherry DO Primary Care Provider [phone] Allergies Active Allergy Reactions Criticality Noted Date [...] times daily if needed (cold sores). Active gabapentin (NEURONTIN) 300 mg capsule Take 600 mg by mouth at bedtime. 11/07/19 Active citalopram (CeleXA) 40 mg tablet Take 40 mg by mouth once daily in the evening. Active cetirizine (ZYRTEC) 10 mg tablet Take 10 mg by mouth once daily in the evening. Discontin ued(*Med complete/ Regimen complete/ Level of care change) estradioL (ESTRACE) 0.5 mg tablet Take 0.5 mg by mouth once daily in the evening. 12/19/19 Discontin ued(*Med complete/ Regimen complete/ Level of care change) omeprazole (PRILOSEC) 20 mg Delayed-Release capsule Take 40 mg by mouth once daily before a meal. Discontin ued(*Med complete/ Regimen complete/ Level of care change) candesartan (ATACAND) 4 mg tablet Take 4 mg by mouth once daily in the evening. Discontin ued(*Med complete/ Regimen complete/ Level of care change) acetaminophen (TYLENOL EXTRA STRGTH) 500 mg tabletIndications :Herniation of intervertebral disc between L5 and S1 Take 2 Tablets (1,000 mg) by mouth every 6 hours. Max acetaminophen dose: 4000mg in 24 hrs. 36 Tablet 3 10:10 AM [employer] 09/19/20 Discontin ued(*Med complete/ Regimen complete/ Level of care change) methocarbamoL (ROBAXIN) 750 mg tabletIndications :Herniation of intervertebral disc between L5 and S1 Take 1 Tablet (750 mg) by mouth four times daily. 24 Tablet 3 10:10 AM [employer] 09/19/20 23 025 Discontin ued(*Med complete/ Regimen complete/ Level of care change) oxyCODONE (ROXICODONE) 5 mg immediate release tabletIndications :Herniation of intervertebral disc between L5 and S1 Take 1-2 Tablets (5-10 mg) by mouth every 4 hours if needed for Pain (For moderate to severe pain.). 26 Tablet 3 10:10 AM [employer] 09/19/20 23 025 Discontin ued(*Med complete/ Regimen complete/ Level of care change) sennosides-docusa te (SENOKOT S) (8.6-50 mg) tabletIndications :Herniation of intervertebral disc between L5 and S1 Take 1-4 Tablets by mouth two times daily. 30 Tablet 3 10:10 AM [employer] 09/19/20 23 025 Discontin ued(*Med complete/ Regimen complete/ Level of care change) methylPREDNISolon e (MEDROL DOSEPAK) 4 mg tabletIndications :Contact dermatitis, unspecified contact dermatitis type, unspecified trigger Take by mouth as instructed per packaging. 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 [place] [address] Arrived 08/16/2025 Travel 07/17/2025 12:20 PM CDT Telemedicine [facility] [place] [address] Viki Mercer NP Telehealth (UTI/No vitals taken -virtual visit./) from Last 3 Months Immunizations Immunization Administration Dates Next Due Hep B (Hepatitis B (Adult) Recombinant Adjuvanted) 08/04/2022 Influenza, CCIIV3 (Age >=6 M O) (Egg Free) 08/10/2024 Influenza, IIV4 08/04/2022,,08/17/2019,2017,07/15/2017,07/09/2016,07/31/2015,1 12/16/2013 Influenza,CCIIV4 PRESERV FREE 08/10/2023 Influenza,LAIV4 Live Intrana corinna (Flumist) 11/16/2020 MMR 06/21/1991 Pneumococcal Conj 20-valent (Prevnar 20) 08/04/2022 Pneumococcal Poly,23-Valent (Pneumovax) 06/28/2021 Td (Age >=7 Years) 10/11/2000 Tdap 11/16/2020,05/20/2010 Family History Medical History Relation Name Comments Factor V Leiden deficiency Father Neuropathy Father Stroke Father multiple Diabetes Maternal Aunt Cancer-prostate Maternal Grandfather Diabetes Maternal Grandmother Diabetes Mother Heart Disease Mother heart valve re placement Stroke Mother age 36 and 53 Cancer-breast Paternal Aunt Anesthesia Problem No Family History Blood Disease No Family History Cancer-colon No Family History Cancer-ovarian No Family History Relation Name Status Comments Daughter Alive Father Maternal Aunt Maternal Grandfather Maternal Grandmother Mother Alive Paternal Aunt Son Alive Social History Tobacco Use Types Packs/Day Years Used Date Smoking Tobacco: Never Smokeless Tobacco: Never Tobacco Cessation:Counseling Given: No Alcohol Use Standard Drinks/Week Comments Yes 0 (1 standard drink = 0.6 oz pur e alcohol) RARE PHQ-2 Answer Date Recorded PHQ-2 Score 2 12/18/2018 Comments No Sex and Gender Information Value Date Recorded Sex Assigned at Not on file Legal Sex Female 5:23 AM [employer] Gender Identity Not on file Sexual Orientation [...] Sign Reading Time Taken Comments Blood Pressure 112/71 08/17/2025 2:40 PM CDT Pulse 69 08/17/2025 2:40 PM CDT Temperature 36.7 C (98.1 F) 10/22/2023 8:54 AM [employer] Respiratory Rate 16 10/22/2023 8:54 AM [employer] Oxygen Saturation 99% 08/17/2025 2:40 PM CDT Inhaled Oxygen Concentration - - Weight 75.3 kg (165 lb 14.4 oz) 08/17/2025 2:40 PM CDT Height 167.6 cm (5' 6) 10/22/2023 8:54 AM [employer] Body Mass Index 26.78 10/22/2023 8:54 AM [employer] Plan of Treatment Upcoming Encounters Date Type Department Care Team (Late st Contact Info) Description 08/28/2025 12:45 PM [employer] Office Visit [facility] [address] [place] [address] Radha Cherry DO [address] [place] [address] Health Maintenance Due Date Last Done Comments HIV for age 15-65 1990 Hepatitis C screening for ag e 18-79 1993 Depression screening for age 12+ 07/05/2019 07/05/2018, 07/02/2018, 07/15/2017, Additional history exists Colonoscopy through age 75 01/23/2020 Mammogram for age 45-75 01/23/2020 07/02/2018 Hepatitis B series for 19+ ( 2 of 2 - CpG 2-dose series) 09/01/2022 08/04/2022 Lipids for age 45-75 07/02/2023 07/02/2018, 06/13/2013, 02/16/2012, Additional history exists BMI (ht and wt on same day) for age 18+ 10/22/2024 10/22/2023, 12/20/2018, 07/02/2018, Additional history exists Zoster (shingles) series for age 50+ (1 of 2) 2025 Influenza Vaccine (#1) 2025 , 08/10/2023, 08/04/2022, Additional history exists Tetanus booster 11/16/2030 11/16/2020, 08/0 11/2009, 10/11/2000 RSV vaccine for adults or (1 - 1-dose 75+ series) 2050 Pneumococcal series for age 50+ Completed 2, 06/28/2021 Medical Devices Implanted Type Area Patternmaker Device Identifier Shelf Expiration Date Model / Serial / Lot Spacer Cage Cerv [id number] Deg F3d Mimetic Metal - [id number] Implanted:Qty: 1 on 11/28/2020 by Rashad Barbosa MD at [facility] N/A: [employer]ine [employer] 08/11/2022 [id number] / / [id number] Spacer Cage Cerv [id number] 7 Deg F3d Mimetic Metal - [id number] Implanted:Qty: 1 on 11/28/2020 by Rashad Barbosa MD at [facility] N/A: [employer] 08/08/2024 [id number] / / [id number] Plate Cerv 4 Lvl 73mm Ascend Ant Titnm - [id number] Implanted:Qty: 1 on 11/28/2020 by Rashad Barbosa MD at [facility] N/A: [employer] [id number] / / [id number] Screw Cerv 4.0x12 Slf Drilling Vari - [id number] Implanted:Qty: 2 on 11/28/2020 by Rashad Barbosa MD at [facility] N/A: [employer] [id number] / / [id number] Screw Cerv 4.0x14 Slf Drilling Vari - [id number] Implanted:Qty: 4 on 11/28/2020 by Rashad Barbosa MD at [facility] N/A: [employer]ine [employer] [id number] / / [id number] Screw Cerv Ant 4.5x14mm Ascend Slf Drill Fa - [id number] Implanted:Qty: 2 on 11/28/2020 by Rashad Barbosa MD at [facility] N/A: [employer]ine [employer] [id number] / / [id number] Spacer Cage Lmbr [id number] Synmesh - [id number] Implanted:Qty: 1 on 11/28/2020 by Rashad Barbosa MD at [facility] N/A: Spine [employer] [id number] / / Endcap Lmbr 12diamm 0 Deg Synmesh - [id number] Implanted:Qty: 1 on 11/28/2020 by Rashad Barbosa MD at [facility] N/A: Spine Depuy [employer] 495.385 / / Endcap Lmbr 12diamm 2.5d Eg Synmesh - [id number] Implanted:Qty: 1 on 11/28/2020 by Rashad Barbosa MD at [facility] N/A: Spine J And J Depuy Spine [...] PM CDT XR MAMMO LOKI BILAT SCREEN [[id number]] CLINICAL HISTORY: This is an asymptomatic 43 y.o. patient. INDICATION FOR EXAM: Mammogram Screening. TECHNIQUE: CC & MLO views were obtained. This digital study was evaluated with the assistance of Computer-Aided Detection. Breast Tomosynthesis was used in interpretation. COMPARISON FILM: Yes 07/28/11 [facility] FINDINGS: Mammographically, the breast tissue is heterogeneously dense, which could obscure detection of small masses. There are no dominant masses, suspicious micro calcifications or areas of architectural distortion. us Kendra MIRANDA MAMMO Final Result * (ABNORMAL) LIPID PANEL W REFLEX MEASURED LDL (07/02/2018 12:24 PM CDT) CHOLESTEROL,TOTAL 237(H) 100 - 199 mg/dL 07/02/2018 8:31 PM CDT [facility] TRIGLYCERIDES 161(H) <150 mg/dL 07/02/2018 8:31 PM CDT [facility] HDL CHOLESTEROL 80 >40 mg/dL 8 8:31 PM CDT [facility] NON-HDL CHOLESTEROL 157(H) <145 mg/dl 07/02/2018 8:31 PM CDT [facility] CHOL/HDL RATIO 2.96 <4.50 07/02/2018 8:31 PM CDT [facility] LDL CHOLESTEROL 125 <=130 mg/dL 07/02/2018 8:31 PM CDT [facility] PROVIDER ORDERED STATUS RANDOM 07/02/2018 8:31 PM T [facility] Blood BLOOD SPECIMEN / Unknown Butterfly / Unknown 07/02/2018 12:24 PM CDT 07/02/2018 12:24 PM CDT Kendra MIRANDA CHEMISTRY Final Result [facility] [address] [place] [address], from Last 3 Months or Most Recently Relevant to Health Maintenance Insurance [facility] [place]ANTAGE [place] ADVANTAGE PLAN [facility] ADVANTAGE PLAN [employer] [place] ADVANTAGE Advance Directives * Full Code (Latest Code [...] 3:08 PM 08/28/2016 3:54 PM Care Teams Residential Monitor Relationship Specialty Start Date End Date Radha Cherry DO [address] [place] [address] PCP - General Family Practice 08/14/25 Kathi Rios, TRUST MANAGER ASSISTANT, DIFFUSION OPERATOR 01/02/23
--- NOTE | 2025-08-17 16:09 | ED_ITS ---
HPI - General Adult General Date Seen: 08/17/25 Chief complaint: Chest Pain Stated complaint: chest pain, from clinic Time Seen by Provider: 08/17/25 16:09 History of Present Illness HPI narrative: 50 yo F who has a history of pericarditis and history of factor 5 Leiden mutation (but no history venous thromboembolic disease) and was otherwise healthy is referred to the ER today from clinic for evaluation of chest pain. She notes that she had onset of chest pain while she was at work about 8 days ago, last Thursday. It has been present ever since then. It is located right in the center of her lower sternum. It does not radiate. It just feels like a tightness and ache. It is present all the time but gets worse when she is exerting and is also worse when she is trying to go to bed and laying back. It is better when she sits up. It never really goes away. It is not associated with any cough. No fever. No abdominal pain. No back pain. It does not radiate to her arms or jaw. She has not had any leg swelling. No recent travel or immobilization. She has been taking Tylenol but it is just getting a little bit worse every day. It feels reminiscent of her previous pericarditis. Related Data Home Medications ?Medication ?Instructions ?Recorded ?Confirmed aspirin 81 mg capsule 81 mg PO DAILY 04/26/2507/21 citalopram 40 mg tablet 40 mg PO DAILY 04/26/2507/21 gabapentin 300 mg capsule 300 mg PO DAILY 04/26/25 Previous Rx's ?Medication ?Instructions ?Recorded colchicine 0.6 mg tablet 0.6 mg PO BID #60 tabs 08/17 ibuprofen 600 mg tablet 600 mg PO BID #30 tabs 08/17 Allergies Allergy/AdvReac Type Severity Reaction Status Date / Time morphine Allergy Unknown Verified 04/26/25 11:37 PFSH PFS Social History Smoking Status: Never smoker How often do you have a drink containing alcohol: monthly or less AUDIT-C Alcohol total score: 1 Non-prescribed substance use: denies use Exam Narrative: Exam Narrative: Constitutional: Appears well-developed and well-nourished. Alert. Conversant. Non toxic. HENT: Head: Atraumatic. Nose: Nose normal. Mouth/Throat: Oral mucosa is clear and moist. no trismus. Pharynx normal. Tonsils symmetric. No tonsillar enlargement, erythema, or exudate. Eyes: Conjunctivae normal. EOM normal. Pupils equal, round, and reactive to light. No scleral icterus. Neck: Normal range of motion. Neck supple. No tracheal deviation present. No JVD Cardiovascular: Normal rate, regular rhythm. No gallop. No friction rub. No chest wall tenderness. No murmur heard. Symmetric radial and PT/DP artery pulses Pulmonary/Chest: Effort normal. No stridor. No respiratory distress. No wheezes. No rales. No rhonchi . No tenderness. Abdominal: Soft. Bowel sounds normal. No distension. No mass. No tenderness. No rebound. No guarding. Musculoskeletal: RUE: Normal range of motion. No tenderness. No deformity LUE: Normal range of motion. No tenderness. No deformity RLE: Normal range of motion. No edema. No tenderness. No deformity LLE: Normal range of motion. No edema. No tenderness. No deformity Neurological: Alert and oriented to person, place, and time. Normal strength. CN II-VII intact. No sensory deficit. GCS eye subscore is 4. GCS verbal subscore is 5. GCS motor subscore is 6. Normal coordination Skin: Skin is warm and dry. No rash noted. No pallor. Normal capillary refill. Psychiatric: Normal mood. Normal affect. Const: Vital Signs, click to edit/add: Vital Signs - 24 hr 08/17/25 15:40 08/17/25 15:54 08/17/25 16:00 Temperature 98 F Pulse Rate [Pulse Oximeter] 70 Respiratory Rate 16 22 16 Blood Pressure Blood Pressure [Ri [facility] [place]] 125/81 Pulse Oximetry 98 Oxygen Delivery Me thod Room Air 08/17/25 16:15 08/17/25 16:30 08/17/25 16:45 Temperature Pulse Rate [Pulse Oximeter] Respiratory Rate 16 14 15 Blood Pressure Blood Pressure [Ri [facility] [place]] Pulse Oximetry Oxygen Delivery Me thod 08/17/25 16:54 08/17/25 17:00 08/17/25 17:15 Temperature Pulse Rate [Pulse Oximeter] Respiratory Rate 20 15 18 Blood Pressure 124/68 Blood Pressure [Ri t Upper Arm] Pulse Oximetry Oxygen Delivery Me thod 08/17/25 17:30 08/17/25 17:45 Temperature Pulse Rate [Pulse Oximeter] Respiratory Rate 18 22 Blood Pressure Blood Pressure [Ri ght Upper Arm] Pulse Oximetry Oxygen Delivery Me thod Course Course ED Course: Recheck. Hemodynamically stable. Feeling well. Reevaluation(s) Reevaluation #1: Discussed with Cardiology, Dr. Keene. He would recommend putting the patient on both NSAIDs and colchicine. Risk of NSAIDs with her factor 5 Leiden is sufficiently low that the benefit of treating pericarditis would outweigh the risk. Vital Signs Vital signs: Initial Vital Signs Temperature 98 F 08/17/25 15:40 Temperature Source Temporal Artery Scan 08/17/25 15:40 Pulse Rate 70 08/17/25 15:40 Respiratory Rate 16 08/17/25 15:40 Blood Pressure 125/81 08/17/25 15:40 Blood Pressure Mean 95 08/17/25 15:40 Blood Pressure Position Sitting 08/17/25 15:40 Pulse Oximetry 98 08/17/25 15:40 Oxygen Delivery Method Room Air 08/17/25 15:40 Vital Signs Temperature 98 F 08/17/25 15:40 Pulse Rate 70 08/17/25 15:40 Respiratory Rate 16 08/17/25 15:40 Blood Pressure 125/81 08/17/25 15:40 Pulse Oximetry 98 08/17/25 15:40 Oxygen Delivery Method Room Air 08/17/25 15:40 Temperature 98 F 08/17/25 15:40 Pulse Rate 70 08/17/25 15:40 Respiratory Rate 22 08/17/25 17:45 Blood Pressure 124/68 08/17/25 16:54 Pulse Oximetry 98 08/17/25 15:40 Oxygen Delivery Method Room Air 08/17/25 15:40 Medications Administered Medications: Discontinued Medications Generic Name Dose Route Start Last Admin Trade Name Freq PRN Reason Stop Dose Admin Aspirin 162 mg 08/17/25 16:45 08/17/25 16:52 Aspirin 81 Mg Tab.Chew PO 08/17/25 16:46 162 mg ONCE ONE Administration Medical Decision Making MDM Narrative Medical decision making narrative: This patient presents to the ER today for evaluation of chest pain ongoingn for the past week. . Differential was broad. No evidence of palpitations, syncope or other cardiac dysrhythmia. We considered possible ACS, however workup with EKG and troponin is negative. HEART score is 1. Given time since onset of symptoms, I do not think the patient needs to be admitted for further sets of enzymes. Her symptoms are suggestive for pericarditis with a nonspecific central chest pain worse with leaning back and better with sitting forward. Similar to her previous bout of pericarditis. No other clear diagnostic criteria. A friction rub. No pericardial effusion. Troponin normal. She is not febrile. No signs of acute myocarditis or CHF. Discussed with cardiology. He would agree that with clinical symptoms reminiscent of prior pericarditis that is highly suggestive and that treatment is indicated. He would recommend dual treatment with colchicine 0.6 b.i.d. as well as an NSAID. We discussed the patient's factor 5 Leiden and the potential increased for thromboembolic disease with NSAIDs. Cardiology I both agree that at this point the clinical benefit of treating pericarditis would outweigh the potential fear medical risk. He would recommend ibuprofen 400 mg b.i.d.. Chest x-ray shows no evidence for pneumonia, pneumothorax, pulmonary edema, pleural effusion, rib fracture, cardiomegaly. Mediastinum is normal on the x-ray. The patient has no ripping or tearing pain through to the back and has symmetric pulses on exam, no other acute neuro findings so I doubt aortic dissection. Risk of radiation and contrast exposure would outweigh the benefit of CT angiogram. We considered PE for this patient. Main risk factor would be factor 5 Leiden. Overall would be low risk based on absence of hypoxia, tachycardia, lower extremity edema. Screening D-dimer is normal at 0.27. No wheezing or bronchospasm to suggest COPD/asthma. No signs of chest wall cellulitis, shingles, injury. With reasonable clinical confidence, I think the patient is safe for outpatient follow up. Discussed return precautions. Questions answered. Patient voices comfort with the plan. Lab Data Labs: Lab Results 08/17/25 Range/Units 16:49 WBC 4.58 (4.50-11.00) K/uL RBC 4.31 (4.00-5.20) m/uL Hgb 13.0 (12.0-16.0) gm/dL Hct 39.4 (33.0-51.0) % MCV 91 (80-100) fL MCH 30 (26-34) pg MCHC 33 (32-36) gm/dL RDW Coeff of Jessy 11.9 (11.5-15.5) % Plt Count 231 (140-440) K/uL Neut % (Auto) 48.6 (42.0-72.0) % Lymph % (Auto) 39.5 (20-44) % [place] % (Auto) 7.9 (0.0-11.0) % Eos % (Auto) 3.3 (0.0-7.0) % Baso % (Auto) 0.7 (0.0-3.0) % Neut # (Auto) 2.23 (1.7-7.0) K/uL Lymph # (Auto) 1.81 (0.90-2.90) K/uL [place] # (Auto) 0.40 (0.00-0.90) K/UL Eos # (Auto) 0.15 (0.00-0.50) K/uL Baso # (Auto) 0.03 (0.00-0.30) K/uL Abs Immat Gran (auto) 0.00 (0.00-0.30) K/uL Imm/Tot Granulo (auto) 0.0 % D-Dimer Quant (PE/DVT) < 0.27 (0.00-0.50) ug/ml Sodium 139 (135-149) mmol/L Potassium 4.3 (3.6-5.1) mmol/L Chloride 99 (96-114) mmol/L Carbon Dioxide 31 (20-32) mmol/L Anion Gap 9 (7-15) mEq/L BUN 14 (7-30) mg/dL Creatinine 0.8 (0.5-1.5) mg/dL Estimated Creat Clear 78.76 Estimated GFR 90 ml/min Glucose 111 (60-115) mg/dL Calcium 8.8 (8.4-10.6) mg/dL Troponin I < 0.01 (0.01-0.04) ng/mL Imaging Data Chest x-ray: Attestation: I have reviewed the pertinent imaging results. Radiologist's impression: Impression: No acute pulmonary disease. ECG Data Attestation: I personally reviewed and interpreted this ECG as follows: Interpretation: Normal sinus rhythm Rate 67 PA interval 114 Normal QRS axis. No acute ST segment elevation or depression. Nonspecific T-wave flattening in leads V1-Fi 6. Nonspecific T-wave inversion in leads V1 and V2. QT 418 QTC 441 No old EKGs available for comparison Discharge Plan Discharge Clinical Impression: Pericarditis Patient Disposition: Home, Self-Care Condition: Stable Instructions: Acute Pericarditis (ED) Additional Instructions: As we discussed, right now we suspect that your symptoms are being caused by a recurrent bout of pericarditis. We are going to treat this with a combination of ibuprofen (400 mg by mouth twice daily) and colchicine (0.6 mg by mouth twice daily). It will typically take 1-2 weeks for symptoms start to improve on these treatments. If you have any worsening symptoms such as worsening chest pain, worsening trouble breathing, fever, swelling in your legs, cough, irregular heartbeats, dizziness or fainting spells, please return to the ER right away Please recheck with your call center trainer (or with your primary care provider) within the next 1 -2 week. Prescriptions: New ibuprofen 600 mg tablet 600 mg PO BID Qty: 30 0RF colchicine 0.6 mg tablet 0.6 mg PO BID Qty: 60 2RF No Action citalopram 40 mg tablet 40 mg PO DAILY gabapentin 300 mg capsule 300 mg PO DAILY aspirin 81 mg capsule 81 mg PO DAILY Follow Up/Referrals: Provider,Not a Local [Non-Staff, Family Practice] Stand Alone Forms: [employer] Info Instructions Procedures POC Ultrasound Cardiac Anatomical areas examined: subxiphoid Indications: chest pain Findings: pericardial effusion (size) (No pericardial effusion. Grossly normal cardiac contractility) Impression: negative exam
[2025-08-17] MEDS: ASPIRIN 81 MG TAB.CHEW 162 MG PO (16:52)
[2025-08-17 16:55] LABS: Hematocrit* 39.4 % (33.0-51.0); Hemoglobin* 13.0 gm/dL (12.0-16.0); Immature Granulocytes Abs Auto 0.00 K/uL (0.00-0.30); Immature Granulocytes Pct Auto 0.0 %; Lymphocytes Absolute Auto 1.81 K/uL (0.90-2.90); Mean Corpuscular HGB Conc 33 gm/dL (32-36); Mean Corpuscular Hemoglobin 30 pg (26-34); Mean Corpuscular Volume 91 fL (80-100); RDW Coefficient of Variation % 11.9 % (11.5-15.5); Red Blood Count* 4.31 m/uL (4.00-5.20); White Blood Count* 4.58 K/uL (4.50-11.00)
[2025-08-17 17:02] LABS: Slide Review Reflex No
[2025-08-17 17:17] LABS: Chloride* 99 mmol/L (96-114); Potassium* 4.3 mmol/L (3.6-5.1)
[2025-08-17 17:20] LABS: Blood Urea Nitrogen* 14 mg/dL (7-30); Calcium* 8.8 mg/dL (8.4-10.6); Carbon Dioxide* 31 mmol/L (20-32); Creatinine* 0.8 mg/dL (0.5-1.5); Est. Creatinine Clearance* 78.76; Estimated Glomerular Filt Rate 90 ml/min; Glucose* 111 mg/dL (60-115)
[2025-08-17 17:32] LABS: Anion Gap 9 mEq/L (7-15); Sodium* 139 mmol/L (135-149)
[2025-08-17 17:44] LABS: D Dimer Quantitative* < 0.27 ug/ml (0.00-0.50)
--- NOTE | 2025-08-17 17:50 | CRLHL7_ITS ---
For Patients: As a result of the Cures Act, medical imaging exams and procedure reports are released immediately into your electronic medical record. You may view this report before your referring provider. If you have questions, please contact your health care provider. Indication: Chest tightness. Technique: Chest radiographs: PA, lateral. Comparison: Chest radiographs dated 01/29/2017. Findings: No focal consolidation or sizable pleural effusion. The cardiomediastinal silhouette is within normal limits. The osseous structures are unremarkable. Impression: No acute pulmonary disease. Dictated by Paul Castaneda MD @ 08/17/2025 6:25:16 PM (Electronically Signed)
== END 2025-08-17 19:25 | disposition home or self-care (01) ==
PROVIDERS: Emergency Provider Emergency Medicine; PCP Family Medicine
DX: I31.9 Disease of pericardium, unspecified (principal)
CPT/HCPCS: 36415; 71046; 76604; 80048; 84484; 85025; 85379; 99283; 99284; A9270